=== PATIENT | female | born 1960 | race African-American/Black ===

== ENCOUNTER 2016-08-19 21:28 | Emergency (ER) | payer OTHER ==
[~2016-08-19] VITALS: Ht 162.6 cm; Wt 73.5 kg
[2016-08-19 21:30] VITALS: BP 133/83
[2016-08-19] MEDS ORDERED: Ipratropium 0.02% Inh Soln 2.5ml UD HHN ONE (22:00)
[2016-08-19] MEDS ORDERED: Albuterol ud Inhalation HHN ONE (22:00)
[2016-08-19 22:44] LABS: BASOPHILS % (AUTO) 0.9 % (0.0-2.0); LYMPHOCYTES % (AUTO) 14.5 % (20.0-45.0); MEAN CORPUSCULAR HEMOGLOBIN 27.9 PG (27.0-31.0); MEAN CORPUSCULAR HGB CONC 30.3 G/DL (32.0-36.0); MEAN CORPUSCULAR VOLUME 92 FL (80-99); MEAN PLATELET VOLUME 7.2 FL (6.5-10.1); NEUTROPHILS % (AUTO) 77.6 % (45.0-75.0); PLATELET COUNT 271 K/UL (150-450); RED BLOOD COUNT 4.12 M/UL (4.20-5.40); RED CELL DISTRIBUTION WIDTH 18.7 % (11.6-14.8)
[2016-08-19 22:59] LABS: TROPONIN I < 0.30 ng/mL (<=0.30)
[2016-08-19 23:00] LABS: ALANINE AMINOTRANSFERASE 19 U/L (3-33); ALBUMIN/GLOBULIN RATIO 0.9 (1.0-2.7); ANION GAP 12 (5-15); ASPARTATE AMINO TRANSFERASE 21 U/L (5-40); CARBON DIOXIDE 23 mEQ/L (20-30); CHLORIDE 103 mEQ/L (98-107); CREATININE 1.1 mg/dL (0.5-0.9); GLOMERULAR FILTRATION RATE 51.8 mL/min (>60); HEMOLYSIS 26; POTASSIUM 4.9 mEQ/L (3.4-4.9); SODIUM 138 mEQ/L (135-145); TOTAL PROTEIN 7.6 g/dL (6.6-8.7)
[2016-08-19 23:10] LABS: CKMB < 1.5 ng/mL (< 3.8)
[2016-08-19] MEDS ORDERED: Aspirin Baby 81mg ORAL ONE (23:15)
[2016-08-20] VITALS: BP 129/91
[2016-08-20 02:00] VITALS: BP 115/79
--- NOTE | 2016-08-20 02:36 | Emergency Room Report ---
History of Present Illness General Chief Complaint: Generalized Weakness Source: Patient, EMS Present Illness HPI This is a 56-year-old female presented after increased generalized weakness. The patient had a gradual onset of increased leg swelling as well as some shortness of breath. Patient prior history of congestive heart failure. The patient reports having been off of medication since leaving skilled nursing several weeks ago. Patient stated that she had been having increased difficulty with the leg swelling. She reports having previously been on medications. She reports having history of heart failure. Allergies: Coded Allergies: PENICILLIN G (Verified Allergy, Unknown, 08/19/16) Patient History Past Medical History: see triage record, CHF Reviewed Nursing Documentation: PMH: Agreed, PSxH: Agreed Nursing Documentation-PMH Past Medical History: No History, Except For Hx Hypertension: Yes Review of Systems All Other Systems: negative except mentioned in HPI Physical Exam Vital Signs Date Time Temp Pulse Resp B/P Pulse Ox O2 Delivery O2 Flow Rate FiO2 08/19/16 21:17 99.3 122 18 137/96 100 Room Air Sp02 EP Interpretation: reviewed, normal General Appearance: normal inspection, alert, GCS 15, mild distress, obese Head: atraumatic ENT: normal ENT inspection, hearing grossly normal, normal voice Neck: normal inspection, full range of motion, supple, no bony tend Respiratory: normal inspection, no respiratory distress, no retraction, rhonchi Cardiovascular #1: tachycardia, edema - 3 + edema Gastrointestinal: normal inspection, normal bowel sounds, non tender, soft, no guarding, no hernia Genitourinary: no CVA tenderness Musculoskeletal: normal inspection, back normal, normal range of motion Neurologic: normal inspection, alert, oriented x3, responsive, motor strength/ tone normal, speech normal Psychiatric: normal inspection, judgement/insight normal, mood/affect normal Skin: normal inspection, normal color, no rash Medical Decision Making Diagnostic Impression: Primary Impression: Congestive heart failure (CHF) ER Course Patient presented for shortness of breath. Differential included but was not limited to anemia, pneumonia, pneumothorax, myocardial infarction, pericardial effusion, congestive heart failure, acidosis. Because of complexity of patient' s case laboratory testing and imaging studies were ordered. The EKG interpreted by me showed sinus tachycardia with a rate of [address] changes the patient was noted to have some elevation of the J- point in leads V1 V2 as well as a slightly prolonged QRS. T waves were inverted laterally and inferiorly. A repeat EKG was unchanged. The patient started on IV diuretics. Patient was given aspirin. Patient was discussed with from [facility] for transfer to [facility]. EKG Diagnostic Results Rate: tachycardiac Rhythm: NSR ST Segments: no acute changes Rhythm Strip Diag. Results EP Interpretation: yes Rhythm: NSR, no PVC's, no ectopy Last Vital Signs Date Time Temp Pulse Resp B/P Pulse Ox O2 Delivery O2 Flow Rate FiO2 08/19/16 22:16 122 23 100 Room Air 08/19/16 21:30 133/83 08/19/16 21:17 99.3 Status: unchanged Disposition: XFER SHT-TRM HOSP Condition: Serious Referrals: NOT CHOSEN JOSIAS,REFERRING (PCP) Senthil Jaimes Aug 20, 2016 02:36
[2016-08-20 02:43] VITALS: BP 119/79
[2016-08-20 03:14] VITALS: BP 119/79
--- NOTE | 2016-08-20 08:21 | Diagnostic Imaging Report ---
Indications: Shortness of breath Technique: Portable AP chest Findings: Comparison: None Inspiratory effort is suboptimal. Cardiac silhouette enlarged. Pulmonary vasculature difficult to evaluate. Interstitial markings appear mildly increased bilaterally. No pleural abnormality demonstrated. Mild elevation apparent right hemidiaphragm. IMPRESSION: Apparent bilateral interstitial prominence, nonspecific, acuity indeterminate. May be secondary to technique. Upright PA and lateral chest radiographs with better inspiratory effort and optimal technique recommended for more complete evaluation. Cardiomegaly
== END 2016-08-20 03:05 | disposition short-term general hospital (02) ==
LOC: EDBD 21:28 → EMR 22:40
DX: I50.9 Heart failure, unspecified (principal); I10 Essential (primary) hypertension; Z88.0 Allergy status to penicillin
CPT/HCPCS: 36415; 71010; 80053; 82550; 82553; 83880; 84484; 85025; 93005; 94640; 94664; 96374; 99285; J1940